=== PATIENT | female | born 1995 | race African-American/Black ===

== ENCOUNTER 2020-05-14 14:32 | Emergency (ER) | payer OTHER ==
[~2020-05-14] VITALS: Ht 154.9 cm; Wt 59.5 kg
[2020-05-14] MEDS ORDERED: ONDANSETRON HCL INJ 2MG/ML 2ML 2 MG/ML VIAL IV STA (14:56)
[2020-05-14] MEDS ORDERED: SODIUM CHLORIDE 0.9% 1000ML 1,000 ML IV SCH (15:00)
[2020-05-14] MEDS ORDERED: KETOROLAC TROMETHAMINE 30 MG/ML VIAL ONE (15:16)
[2020-05-14] MEDS ORDERED: KETOROLAC TROMETHAMINE 30 MG/ML VIAL IV STA (16:12)
[2020-05-14] MEDS ORDERED: CEFTRIAXONE SOD 1 GM/50 ML BAG IV SCH (16:45)
[2020-05-14] MEDS ORDERED: CEFTRIAXONE SOD 1 GM in SODIUM CHLORIDE 0.9% 50ML 50 ML IV SCH (17:00)
[2020-05-14] MEDS ORDERED: CEFTRIAXONE SOD 1 GM 50 ML IV ONE (17:23)
[2020-05-14 17:40] LABS: BASOPHILS # (AUTO) 0.1 (0.0-0.1); BASOPHILS % 0.3 % (0.0-1.0); EOSINOPHILS # (AUTO) 0.2 (0.0-0.4); HEMOGLOBIN 7.2 g/dL (12.0-16.0); LYMPHOCYTES # (AUTO) 3.6 (1.0-3.2); LYMPHOCYTES % 20.6 % (18.0-39.1); MEAN CORPUSCULAR HEMOGLOBIN 32.6 pg (28-32); MEAN CORPUSCULAR HGB CONC 33.2 g/dL (31-35); MEAN CORPUSCULAR VOLUME 98.2 fL (81-99); MONOCYTES # (AUTO) 1.9 (0.2-0.8); MONOCYTES % 10.6 % (4.4-11.3); NEUTROPHILS # (AUTO) 11.8 (2.1-6.9); NEUTROPHILS % 66.9 % (38.7-80.0); PLATELET COUNT 297 x10e3/uL (140-360); RED BLOOD COUNT 2.21 x10e6/uL (3.6-5.1); RED CELL DISTRIBUTION WIDTH 27.3 % (11.7-14.4)
[2020-05-14 17:45] VITALS: BP 100/57
[2020-05-14] MEDS ORDERED: CEFDINIR300 MG PO (17:46)
[2020-05-14 17:48] LABS: HEMATOCRIT 21.7 % (34.2-44.1)
[2020-05-14] MEDS ORDERED: PHENERGAN SUPP25 MG PR (17:54)
== END 2020-05-14 17:45 | disposition home or self-care (01) ==
LOC: FSED 14:59
DX: M54.5 Low back pain (principal); N12 Tubulo-interstitial nephritis, not specified as acute or chronic; D72.829 Elevated white blood cell count, unspecified; D57.1 Sickle-cell disease without crisis; R11.0 Nausea
CPT/HCPCS: 36415; 71046; 74176; 80048; 80076; 81003; 81025; 85025; 85045; 87040; 87086; 87186; 99284; J0696; J1885; J2405; J7030